=== PATIENT | male | born 1990 | race Caucasian/White ===

== ENCOUNTER 2018-03-28 21:22 | Emergency (ER) | payer SELFPAY ==
[2018-03-28] MEDS ORDERED: Sodium Chloride 0.9% 1,000 ML IV ONE ×2 (21:31→21:38)
[2018-03-28] MEDS ORDERED: Ondansetron 4 MG/2 ML SDV IVPUSH ONE (21:38)
--- NOTE | 2018-03-28 21:44 | EDM.PDOC ---
ED HPI GENERAL MEDICAL PROBLEM - General Chief Complaint: Respiratory Problem Stated Complaint: SOB Time Seen by Provider: 03/28/18 21:39 Source of Information: Reports: Patient, Other (co-workers) History Limitations: Reports: No Limitations - History of Present Illness INITIAL COMMENTS - FREE TEXT/NARRATIVE: Rio is a 27yo male brought in by co-workers for worsening diffuse muscle cramping starting around 2 hours and rapidly progressing. He did note mild cramping earlier in the day and tried to push fluids with water, pedialyte and gatorade. 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 He denies alcohol in the past 24 hours, no other illicit drug use. Does state has taken 2 doses of sudafed today for sinus congestion/cough which has been bothering him for a week or so. He did have similar cramping a year or so ago in similar situation, working in the heat all day but nothing to this extent-did not come into ED. He is otherwise healthy, no kidney disease/problems by hx. He does have SOB and chest pain as it is difficult for him to get deep breath/inspiration due to pain /cramping with breathing movements. Onset: Today Duration: Hour(s): (2) Location: Reports: Generalized Quality: Reports: Other (cramping all over) Severity: Severe Improves with: Reports: None Worsens with: Reports: Movement Context: Reports: Activity, Other (working in heat all day- Hide [employer]er in the [employer], wears FR's and hard hat all day. ) Associated Symptoms: Reports: Diaphoresis, Shortness of Breath, Other (nausea) Treatments CARD TENDER: Reports: Other (see below) (none, pushing fluids all day and especially the last 2 hours since cramping started) Generalized Pain Score (Numeric/FACES): 8 - Related Data Allergies Allergy/AdvReac Type Severity Reaction Status Date / Time No Known Allergies Allergy Verified 03/28/18 21:31 Home Meds: Home Meds . [No Known Home Meds] 03/28/18 [History] ED ROS GENERAL - Review of Systems Review Of Systems: See Below Constitutional: Reports: Weakness, Diaphoresis HEENT: Reports: No Symptoms Respiratory: Reports: Shortness of Breath. Denies: Cough Cardiovascular: Reports: Chest Pain, Palpitations GI/Abdominal: Reports: Abdominal Pain, Nausea. Denies: Diarrhea, Vomiting : Reports: No Symptoms Musculoskeletal: Reports: Other (cramping generalized to arms, legs, abdomen, back and chest) Neurological: Reports: Headache Psychiatric: Reports: Anxiety (current situation) ED EXAM, GENERAL - Physical Exam Exam: See Below Exam Limited By: Other (pain due to cramping) General Appearance: Alert, Moderate Distress Eye Exam: Bilateral Eye: EOMI, PERRL Ears: Normal External Exam, Hearing Grossly Normal Nose: Normal Inspection Throat/Mouth: Normal Teeth, Normal Gums, Normal Voice, No Airway Compromise, Other (dry mucous membranes) Head: Atraumatic, Normocephalic Neck: Normal Inspection Respiratory/Chest: Lungs Clear, Normal Breath Sounds, Other (shallow respirations). No: Crackles, Rales, Rhonchi, Wheezing Cardiovascular: Regular Rate, Rhythm, No Edema, No Murmur, Tachycardia GI/Abdominal: Normal Bowel Sounds, Soft, Other (diaphoresis to abdomen and chest ) (Male) Exam: Deferred Rectal (Males) Exam: Deferred Extremities: Normal Inspection, No Pedal Edema, Normal Capillary Refill, Other ( clammy to arms and hands) Neurological: Alert, Oriented, CN II-XII Intact, Normal Cognition Psychiatric: Anxious Skin Exam: Intact, Diaphoretic, Other (clammy to forearms and hands) EKG INTERPRETATION EKG Date: 03/28/18 Time: 22:34 Rhythm: Other (sinus rhythm rate 84bpm, reviewed with Dr. Padgett) Course - Vital Signs Last Recorded V/S: Last Vital Signs Temp 97.8 F 03/28/18 21:31 Pulse 85 03/28/18 22:44 Resp 18 03/28/18 22:44 BP 122/68 03/28/18 22:44 Pulse Ox 100 03/28/18 22:44 - Orders/Labs/Meds Labs: Laboratory Tests 03/28/18 03/28/18 03/28/18 Range/Units 21:40 21:40 21:40 WBC 16.09 H (4.23-9.07) K/mm3 RBC 5.53 (4.63-6.08) M/mm3 Hgb 16.7 (13.7-17.5) gm/L Hct 49.2 (40.1-51.0) % MCV 89.0 (79.0-92.2) fl MCH 30.2 (25.7-32.2) pg MCHC 33.9 (32.2-35.5) g/dl RDW Std Deviation 38.8 (35.1-43.9) fL Plt Count 411 H (163-337) K/mm3 MPV 8.9 L (9.4-12.3) fl Neut % (Auto) 73.1 H (34.0-67.9) % Lymph % (Auto) 17.4 L (21.8-53.1) % Williamson % (Auto) 7.5 (5.3-12.2) % Eos % (Auto) 1.2 (0.8-7.0) Baso % (Auto) 0.4 (0.1-1.2) % Neut # (Auto) 11.74 H (1.78-5.38) K/mm3 Lymph # (Auto) 2.80 (1.32-3.57) K/mm3 Williamson # (Auto) 1.21 H (0.30-0.82) K/mm3 Eos # (Auto) 0.20 (0.04-0.54) K/mm3 Baso # (Auto) 0.07 (0.01-0.08) K/mm3 Sodium 134 L (136-145) mEq/L Potassium 4.1 (3.5-5.1) mEq/L Chloride 93 L (98-107) mEq/L Carbon Dioxide 25 (21-32) mEq/L Anion Gap 20.1 H (5-15) BUN 23 H (7-18) mg/dL Creatinine 2.3 H (0.7-1.3) mg/dL Est Cr Clr Drug Dosing 49.10 mL/min Estimated GFR (MDRD) 35 (>60) mL/min BUN/Creatinine Ratio 10.0 L (14-18) Glucose 134 H (74-106) mg/dL Calcium 11.1 H (8.5-10.1) mg/dL Magnesium 2.1 (1.8-2.4) mg/dl Total Bilirubin 1.4 H (0.2-1.0) mg/dL AST 42 H (15-37) U/L ALT 39 (16-63) U/L Alkaline Phosphatase 81 (46-116) U/L Creatine Kinase 1095 H (39-308) U/L Troponin I < 0.017 (0.00-0.056) ng/mL Total Protein 10.1 H (6.4-8.2) g/dl Albumin 5.1 H (3.4-5.0) g/dl Globulin 5.0 gm/dL Albumin/Globulin Ratio 1.0 (1-2) Ethyl Alcohol 0.00 (0.00) gm% 03/28/18 Range/Units 23:28 WBC (4.23-9.07) K/mm3 RBC (4.63-6.08) M/mm3 Hgb (13.7-17.5) gm/L Hct (40.1-51.0) % MCV (79.0-92.2) fl MCH (25.7-32.2) pg MCHC (32.2-35.5) g/dl RDW Std Deviation (35.1-43.9) fL Plt Count (163-337) K/mm3 MPV (9.4-12.3) fl Neut % (Auto) (34.0-67.9) % Lymph % (Auto) (21.8-53.1) % Williamson % (Auto) (5.3-12.2) % Eos % (Auto) (0.8-7.0) Baso % (Auto) (0.1-1.2) % Neut # (Auto) (1.78-5.38) K/mm3 Lymph # (Auto) (1.32-3.57) K/mm3 Williamson # (Auto) (0.30-0.82) K/mm3 Eos # (Auto) (0.04-0.54) K/mm3 Baso # (Auto) (0.01-0.08) K/mm3 Sodium 138 (136-145) mEq/L Potassium 4.0 (3.5-5.1) mEq/L Chloride 103 (98-107) mEq/L Carbon Dioxide 25 (21-32) mEq/L Anion Gap 14.0 (5-15) BUN 21 H (7-18) mg/dL Creatinine 1.5 H (0.7-1.3) mg/dL Est Cr Clr Drug Dosing 75.28 mL/min Estimated GFR (MDRD) 57 (>60) mL/min BUN/Creatinine Ratio 14.0 (14-18) Glucose 86 (74-106) mg/dL Calcium 8.3 L (8.5-10.1) mg/dL Magnesium (1.8-2.4) mg/dl Total Bilirubin (0.2-1.0) mg/dL AST (15-37) U/L ALT (16-63) U/L Alkaline Phosphatase (46-116) U/L Creatine Kinase 976 H (39-308) U/L Troponin I (0.00-0.056) ng/mL Total Protein (6.4-8.2) g/dl Albumin (3.4-5.0) g/dl Globulin gm/dL Albumin/Globulin Ratio (1-2) Ethyl Alcohol (0.00) gm% Meds: Medications Discontinued Medications Generic Name Dose Route Start Last Admin Trade Name Freq PRN Reason Stop Dose Admin Sodium Chloride 1,000 mls @ 999 mls/hr 03/28/18 21:31 03/28/18 21:40 Normal Saline IV 03/28/18 22:31 999 mls/hr ONETIME ONE Administration Sodium Chloride 1,000 mls @ 999 mls/hr 03/28/18 21:38 03/28/18 21:40 Normal Saline IV 03/28/18 22:38 999 mls/hr ONETIME ONE Administration Sodium Chloride 1,000 mls @ 999 mls/hr 03/28/18 22:27 03/28/18 22:43 Normal Saline IV 03/28/18 23:27 999 mls/hr ONETIME ONE Administration Ondansetron HCl 4 mg 03/28/18 21:38 03/28/18 21:45 Zofran IVPUSH 03/28/18 21:39 4 mg ONETIME ONE Administration - Re-Assessments/Exams Free Text/Narrative Re-Assessment/Exam: 03/28/18 21:44 2 IV sites started with NS infusing to both sites, zofran given for nausea. Free Text/Narrative Re-Assessment/Exam: 03/28/18 22:29 Patient doing much better, breathing easier. Reports feels much better, cramping improving and at least 50% improvement. Nausea resolved. Will obtain EKG to assure no changes. Reviewed case with Dr. Padgett, review labs, recommendations for EKG as noted above. 2L infused, will order 2 more and plan for recheck of labs in 2 hours. Free Text/Narrative Re-Assessment/Exam: 03/28/18 23:21 Patient asking if he can leave, fluids not quite finished (4L total), orders placed for repeat BMP and CK, if improved or stable will DC patient home tonight. Departure - Departure Time of Disposition: 00:05 Disposition: Home, Self-Care 01 Condition: Good Clinical Impression: Dehydration after exertion Rhabdomyolysis Qualifiers: Rhabdomyolysis type: non-traumatic Qualified Code(s): M62.82 - Rhabdomyolysis - Discharge Information *PRESCRIPTION DRUG MONITORING PROGRAM REVIEWED*: Not Applicable *COPY OF PRESCRIPTION DRUG MONITORING REPORT IN PATIENT RAMON: Not Applicable Instructions: Dehydration, Adult, [id number] Referrals: PCP,None [Primary Care Provider] - Forms: ED Department Discharge Additional Instructions: -Push fluids -Continue to drink gatorade/powerade and water frequently during your work days. -Recommend no work tomorrow, may return 03/30/18. -Tylenol as needed for muscle soreness, expect your muscles to be very sore the next few days. -Should your urine turn dark or red over the next few days you need to return to ED immediately for further evaluation as this can be a sign your kidneys are overloading with broken down muscle tissue.
[2018-03-28] MEDS: Sodium Chloride 0.9% 1,000 ML IV ONE ×2 (22:41→22:43)
== END 2018-03-29 00:05 | disposition home or self-care (01) ==
LOC: JD.ED 21:22
DX: M62.82 Rhabdomyolysis (principal); E86.0 Dehydration
CPT/HCPCS: 36415; 80048; 80053; 82550; 83735; 84484; 85025; 93005; 96361; 96374; 99284; G0480; J2405; J7040